=== PATIENT | female | born 1975 | race Caucasian/White ===

== ENCOUNTER 2021-10-20 08:48 | Day surgery (SDC) | payer OTHER ==
[~2021-10-20] VITALS: Ht 165.1 cm; Wt 86.4 kg
[2021-10-20 09:40] VITALS: BP 156/77; PULSE 51; TEMP 98.3
[2021-10-20] MEDS ORDERED: NORCO 325 MG-51 TAB PO (11:08)
[2021-10-20 11:10] VITALS: BP 123/72; PULSE 53
--- NOTE | 2021-10-20 11:10 | NUR ---
Patient returns to room 1 per cart from surgery accompanied by Alanna GOYAL and Gurjit ESTRELLA. Patient is awake and alert. IV fluids infusing and site is free of redness or swelling. Dressing clean and dry on the left breast. Siderails up x2 and call light in reach. Spouse in room. Offers no complaint of pain or nausea. Allowed to rest.
[2021-10-20 11:25] VITALS: BP 121/69; PULSE 44
--- NOTE | 2021-10-20 11:25 | NUR ---
More awake and is sipping on water.
[2021-10-20 11:40] VITALS: BP 109/89; PULSE 42
--- NOTE | 2021-10-20 11:40 | NUR ---
More awake and talking with family. States she is having minimal soreness.
[2021-10-20 11:55] VITALS: BP 148/77; PULSE 51
--- NOTE | 2021-10-20 11:55 | NUR ---
Eating applesauce and states that she is having more discomfort. Medicated with [place] 5mg one tab.
[2021-10-20 12:25] VITALS: BP 123/69; PULSE 44
--- NOTE | 2021-10-20 12:25 | NUR ---
States that the pain medication has helped. IV discontinued and site is free of redness or swelling. Dressing remains dry on the left breast. Instructed to wear bra for support.
--- NOTE | 2021-10-20 12:41 | NUR ---
Patient dresses self. Spouse in room.
--- NOTE | 2021-10-20 13:03 | NUR ---
Patient dismissed to home driven by spouse and taken to the front door per wheelchair and assisted into vehicle with dismissal instructions in hand.
== END 2021-10-20 13:03 | disposition home or self-care (01) ==
LOC: SDCO 08:48
DX: D24.2 Benign neoplasm of left breast (principal); F17.210 Nicotine dependence, cigarettes, uncomplicated; Z86.16 Personal history of COVID-19
CPT/HCPCS: J0690; J1885; J2405; J2704; J3010; J7120